=== PATIENT | female | born 1970 | race Caucasian/White ===

== ENCOUNTER 2019-12-10 13:54 | Inpatient (IN) | payer OTHER, SELFPAY ==
[2019-12-10 14:33] LABS: Bacteria/HPF 4+ HPF (None Seen); Bilirubin 1+ (Negative); Blood, Urine Negative (Negative); Calcium Oxalate Crystals 4+ HPF (None Seen); Clarity Turbid (Clear); Glucose, Urine (Dipstick) Normal (Negative); Ketone, Urine Negative (Negative); Leukocyte 25 Leu/uL (Negative); Nitrite Negative (Negative); Protein, Urine (Dipstick) 50 mg/dL (Neg-Trace); RBC/HPF 0-3 HPF (0-3); Specific Gravity, Urine 1.018 (1.002-1.036); Squamous Epithelial 21-50 HPF (0-3); Urobilinogen Normal mg/dL (Less than 2)
[2019-12-10] MEDS ORDERED: Ketorolac Tromethamine 30 MG/ML VIAL ONE (15:11)
[2019-12-10] MEDS ORDERED: Ondansetron PF 4 MG/2 ML Vial ONE ×2 (15:11→20:19)
[2019-12-10 15:32] LABS: #Lymphocytes 1.1 thou/uL (1.20-3.40); #Monocytes 0.4 thou/uL (0.11-0.59); #Neutrophils 6.2 thou/uL (1.40-6.50); %Basophils 0.3 % (0.0-1.0); %Eosinophils 0.3 % (0.0-10.0); %Lymphocytes 13.9 % (21.0-51.0); %Monocytes 5.5 % (0.0-10.0); %Neutrophils 80.1 % (42.0-75.0); Hemoglobin 13.3 g/dL (12.0-16.0); Mean Corpuscular HGB CONC 33.7 g/dL (32.0-36.0); Mean Corpuscular Volume 88.9 fL (78.0-98.0); Mean Platelet Volume 8.2 fL (7.4-10.4); Platelet Count 228 thou/uL (130-400); RBC Distribution Width 11.9 % (11.5-14.5); Red Blood Cell (RBC) Count 4.45 mill/uL (4.20-5.40); White Blood Cell (WBC) Count 7.8 thou/uL (4.8-10.8)
[2019-12-10 15:50] LABS: ALT (SGPT) 451 U/L (8-55); AST (SGOT) 194 U/L (5-34); Albumin 4.2 g/dL (3.5-5.0); Alkaline Phosphatase 222 U/L (40-110); Anion Gap 15 mmol/L (10-20); BUN (Urea Nitrogen) 8 mg/dL (7.0-18.7); Bilirubin, Total 3.7 mg/dL (0.2-1.2); Calc. Creatinine Clearance 0 mL/min (70-130); Calcium 9.9 mg/dL (7.8-10.44); Carbon Dioxide 28 mmol/L (22-29); Chloride 100 mmol/L (98-107); Estimated GFR-MDRD 75; Globulin 3.8 g/dL (2.4-3.5); Glucose 159 mg/dL (70-105); Lipase 37 U/L (8-78); Potassium 3.8 mmol/L (3.5-5.1); Sodium 139 mmol/L (136-145)
--- NOTE | 2019-12-10 15:50 | ULT ---
EXAM: US Gallbladder RUQ CLINICAL HISTORY: Right upper quadrant pain.. COMPARISON: None. FINDINGS: Pancreas: Head and body the pancreas have a normal echotexture. The remainder the pancreas is obscur ed by bowel gas Liver:Increased hepatic parenchymal echotexture may be due to hepatic steatosis or hepatocellular dis ease. Subsequent limited evaluation for hepatic masses and intrahepatic biliary dilatation. Right hepatic lobe: 16.1 cm Gallbladder: Sonographic evidence of cholelithiasis. Gallbladder wall is not thickened. No pericholec ystic fluid. Yao's sign:Negative Portal Vein: Patent. Appropriate directional flow Bile ducts: Common bile duct diameter at the upper limits of normal measuring 0.6 cm Right kidney: No hydronephrosis. Right kidney measures 11.0 x 6.7 x 5.4 cm in length. IMPRESSION: 1. Sonographic evidence of cholelithiasis without evidence of cholecystitis. 2. Common bile duct diameter at the upper limits. 3. Increased echogenicity of the liver which may be due to hepatic steatosis or hepatocellular diseas e. Limited evaluation for hepatic masses and intrahepatic biliary dilatation..
[2019-12-10] MEDS ORDERED: Morphine 4 MG/ML VIAL ONE (16:34)
[2019-12-10] MEDS ORDERED: Piperacillin/Tazobactam 4.5 GM VIAL ONE (17:22)
[2019-12-10] MEDS ORDERED: Ondansetron ODT 4 MG TAB PO PRN (19:27)
[2019-12-10] MEDS ORDERED: Acetaminophen 325 MG TAB PO PRN (19:27)
--- NOTE | 2019-12-10 19:39 | PDOC.FPRHP ---
- History of Present Illness Chief Complaint: Epigastric pain History of Present Illness: Patient is a 49 year old female with a history of hypothyroidism, IBS and mast cell activation syndrome who presents to the ED with complains of epigastric pain for the past 4 days. The patient states the pain has worsened in severity and radiates to her RUQ and back. She describes the pain as similar to reflux burning in nature. She says the pain worsens after eating food and improved with Advil. She rates the pain a currently 7/10, noting it has reached a max 10/ 10 and min 2/10. She reports decreased appetite, lightheadedness, hot/cold flashes, nausea and 2 episodes of vomiting. She denies fever, headache, vision changes, chest pain, SOB, sweating, dysuria, hematuria, and edema. She denies a history of similar symptoms in the past. ED Course: In the ED, the patient received a total of morphine 6mg, zofran 4mg x 2, Piperacillin-tazobactam, NS 1L and ketorolac 30mg. Afebrile. Stable vitals. - Allergies/Adverse Reactions Allergies Allergy/AdvReac Type Severity Reaction Status Date / Time No Known Drug Allergies Allergy Verified 12/10/19 21:45 - Home Medications Medication Instructions Recorded Confirmed Type Cetirizine HCl [Zyrtec] 10 mg PO BID 12/10/19 12/10/19 History Esomeprazole Magnesium 40 mg PO BID 12/10/19 12/10/19 History Ketotifen Fumarate 2 mg OP BID 12/10/19 12/10/19 History Levothyroxine Sodium [Synthroid] 150 mcg PO DAILY 12/10/19 12/10/19 History Omalizumab [Xolair] 150 mg SQ [id number] 12/10/19 12/10/19 History Venlafaxine HCl [Venlafaxine HCl 150 mg PO HS 12/10/19 12/10/19 History ER] hydrOXYzine [Atarax] 10 mg PO QID 12/10/19 12/10/19 History - History PMHx: hypothyroidism, IBS, mast cell activation syndrome, endometrosis PSHx: R elbow surgery, lap for endometriosis FHx: Noncontributory Social: No tobacco use, ETOH use or drug use. - Review of Systems General: reports: weight/appetite/sleep changes. denies: fever/chills, night sweats Eyes: denies: eye pain, vision changes ENT: denies: nasal congestion, rhinorrhea Respiratory: denies: cough, shortness of breath Cardiovascular: denies: chest pain, palpitation, edema Gastrointestinal: reports: nausea, abdominal pain. denies: vomiting, diarrhea, constipation Genitourinary: denies: dysuria, polyuria Skin: denies: rashes, lesions Musculoskeletal: denies: pain, swelling Neurological: denies: syncope, weakness Psychological: denies: anxiety, depression - Vital signs BP: [104/70] HR: [94] RR: [96] Tmax: [97.9] Pox: [96]% on [RA] Wt: [72.575] - Physical Exam Constitutional: NAD, awake, alert and oriented HEENT: normocephalic and atraumatic, no scleral icterus Neck: supple, trachea midline Chest: no-tender to palpation, no lesions Heart: RRR, normal S1/S2 Lungs: CTAB, no respiratory distress Abdomen: soft, non-tender, bowel sounds present, no masses/distention Musculoskeletal: normal structure, ROM grossly normal Neurological: no focal deficit, CN II-XII intact Skin: no rash/lesions, capillary refill <2 seconds, no jaundice Heme/Lymphatic: no unusual bruising or bleeding Psychiatric: normal mood and affect FMR H&P: Results - Labs Result Diagrams: 12/10/19 14:43 12/10/19 14:43 Lab results: WBC 7.8 thou/uL (4.8-10.8) 12/10/19 14:43 Hgb 13.3 g/dL (12.0-16.0) 12/10/19 14:43 Hct 39.5 % (36.0-47.0) 12/10/19 14:43 MCV 88.9 fL (78.0-98.0) 12/10/19 14:43 Plt Count 228 thou/uL (130-400) 12/10/19 14:43 Neutrophils % 80.1 % (42.0-75.0) H 12/10/19 14:43 Sodium 139 mmol/L (136-145) 12/10/19 14:43 Potassium 3.8 mmol/L (3.5-5.1) 12/10/19 14:43 Chloride 100 mmol/L (98-107) 12/10/19 14:43 Carbon Dioxide 28 mmol/L (22-29) 12/10/19 14:43 BUN 8 mg/dL (7.0-18.7) 12/10/19 14:43 Creatinine 0.82 mg/dL (0.6-1.1) 12/10/19 14:43 Glucose 159 mg/dL (70-105) H 12/10/19 14:43 Calcium 9.9 mg/dL (7.8-10.44) 12/10/19 14:43 Total Bilirubin 3.7 mg/dL (0.2-1.2) H 12/10/19 14:43 AST 194 U/L (5-34) H 12/10/19 14:43 ALT 451 U/L (8-55) H 12/10/19 14:43 Alkaline Phosphatase 222 U/L (40-110) H 12/10/19 14:43 Serum Total Protein 8.0 g/dL (6.0-8.3) 12/10/19 14:43 Albumin 4.2 g/dL (3.5-5.0) 12/10/19 14:43 Lipase 37 U/L (8-78) 12/10/19 14:43 Urine Ketones Negative mg/dL (Negative) 12/10/19 14:18 Urine Blood Negative (Negative) 12/10/19 14:18 Urine Nitrite Negative (Negative) 12/10/19 14:18 Ur Leukocyte Esterase 25 Michael/uL (Negative) A 12/10/19 14:18 Urine RBC 0-3 HPF (0-3) 12/10/19 14:18 Urine WBC 11-20 HPF (0-3) A 12/10/19 14:18 Ur Squamous Epith Cells 21-50 HPF (0-3) A 12/10/19 14:18 Urine Bacteria 4+ HPF (None Seen) A 12/10/19 14:18 FMR H&P: A/P - Plan Choledocholithiasis Afebrile. WBC 7.8. AST 194, ALT 451, Alk Phos 222, Bili 3.7. Lipase 37. US showed cholelithiasis with CBD 0.6cm. Dr. Delarosa (GI) consulted in the ED and recommended ERCP in the am. -Admit to surgery inpatient -NPO at midnight for ERCP -Consult Dr. Barnhart (general surgery) for lap brown -LR 110 for maintanence fluids -Zofran PRN for nausea -Morphine PRN for pain -Repeat CBC, CMP in am Asymptomatic bacteruria UA was positive for leuk reji, WBC, and bacteria, however was likely contaminated due to numerous squamous cells. Patient is asymptomatic, therefore no treatment is indicated. -No treatment at this time IBS -Stable on home meds Hypothyrodism -Restart home meds Mast Cell Activation Syndrome -Restart home meds PCP: [facility] Call Code: FULL DVT PPx: SCDs Dispo: admit to surgery inpatient for ERCP and lap brown in the morning, eLOS > 48 hours FMR H&P: Upper Level - Plan Date/Time: 12/10/191938 Evelia Barlow, have evaluated this patient and agree with findings/plan as outlined by summer intern resident. Pertinent changes/additions are listed here. 49 yo F with PMH hypothyroid, IBS, mast cell activation, anxiety presents with nausea, vomiting, and epigastric pain. Symptoms present x4 days. Seen in urgent care, noted to have elevated LFTs and sent to ED for further evaluation. Symptoms have improved since receiving meds in ED. Pain is epigastric, radiating to RUQ and back, intermittently worsens. Any food exacerbates pain. No prior hx gallstones. She is [employer] pay, and cost is important consideration for patient. In ED given zosyn, morphine 4mg, toradol 30, 1L, zofran RUQ US: Cholelithiasis, no cholecystitis. CBD at upper limit of normal, 0.6 cm, increased echogenicity of liver PE Gen: NAD Heart: RRR, no murmur Lungs: CTAB Abd: soft, BS present, NT Ext: no edema 49 yo F with PMH hypothyroidism, IBS, mast cell activation is admitted for likely choledocholithiasis. Suspected Choledocholithiasis - Associated with elevated transaminases, hyperbilirubinemia, AST 194, ALT 451, alk phos 222, bili 3.7. Lipase and WBC wnl. - CBD at upper limits of normal -Dr. Delarosa consulted from ED, plan for ERCP tomorrow. -Gen surg, Dr. Barnhart consulted as well, likely plan for lap brown tomorrow as well - NPO @ midnight, continue maintenance fluids - Zofran, morphine prn - Recheck labs in am Asymptomatic bacteruria - given zosyn in ED, will not continue at htis time, dirty catch Continue home meds. Chronic problems per summer intern note. PCP: none Attending: Rica Ppx: SCDs, plan for surgery Diet: NPO @ MN IVF: LR @ 110 Dispo: admit to surgical floor, expected LOS >48hrs. GI and gen surg consulted with plan for ECRP and possible lab brown tomorrow Addendum - Attending - Attending Attestation Date/Time: 12/10/192043 I personally evaluated the patient and discussed the management with Dr. Rivas. I agree with the History, Examination, Assessment and Plan documented above with any addition or exceptions noted below. The patient has been having epigastric pain radiating to the ruq and to the back. She was seen at [facility] urgent care and noted to have elevated liver enzymes and directed to the [facility] ER. Pt has choledocholithiasis as well as cholelithiasis. GI has been consulted for ERCP and general surgery is also being consulted. Will continue nausea medication and pain control. Trend labs.
[2019-12-10] MEDS ORDERED: Morphine 2 MG/ML SYRINGE ONE (20:18)
--- NOTE | 2019-12-10 21:13 | CON ---
DATE OF CONSULTATION: 12/10/2019 CHIEF COMPLAINT: Abdominal pain. HISTORY OF PRESENT ILLNESS: Ms. Condon is a 49-year-old woman who had onset of epigastric to right upper quadrant aching to sharp abdominal pain 4 days ago. The pain has been continuous since then. She has only eaten one meal since onset of the pain. She has had vomiting and last threw up this morning. No diarrhea or constipation. She was evaluated by Dr. Siegel back in May of this year for chronic diarrhea and a history of mastocytosis and ultimately, she underwent EGD and colonoscopy, which were normal. Biopsies from the stomach and colon and duodenum were normal. She was diagnosed with irritable bowel syndrome and a long way, she was started on venlafaxine and her diarrhea symptoms resolved. The current abdominal pain is unrelated to her prior symptoms, this is all new. She went to an urgent care this morning and she was found to have elevated liver tests and sent on to the emergency room here. While I was down in the ER seeing another patient, the ER doctor asked me to see her. We do not have any labs or imaging back as of yet. PAST MEDICAL HISTORY: Mastocytosis and allergies, irritable bowel syndrome, hypothyroidism, endometriosis, acid reflux, and kidney stones. Her abdominal pain does radiate toward her back. PAST SURGICAL HISTORY: EGD and a colonoscopy in May of this year. FAMILY HISTORY: Negative for GI malignancy or inflammatory bowel disease. SOCIAL HISTORY: No alcohol, tobacco, or drugs. ALLERGIES: NO KNOWN DRUG ALLERGIES. MEDICATIONS: 1. Cetirizine. 2. Ketotifen. 3. Xolair injections monthly. 4. Hydroxyzine. 5. Esomeprazole 40 mg twice daily. REVIEW OF SYSTEMS: Negative x10 systems reviewed except as stated in the history of present illness. PHYSICAL EXAMINATION: GENERAL: She is alert and oriented x3, in no acute distress. HEENT: Her sclerae are icteric. Her oropharynx is clear without lesions. She has no cervical or supraclavicular lymphadenopathy. LUNGS: Clear to auscultation bilaterally. HEART: Regular rate and rhythm without murmur. ABDOMEN: Soft. She is tender in the epigastric regions, the right upper quadrant. Bowel sounds are present. EXTREMITIES: No lower extremity edema. NEUROLOGIC: Her cranial nerves are grossly intact. IMPRESSION: Epigastric to right upper quadrant pain that radiates to the back with scleral icterus. This could be choledocholithiasis or gallstone pancreatitis or cholelithiasis. She could also have an acute hepatitis. We will await blood work and ultrasound to help determine the next step. RECOMMENDATIONS: 1. CMP, CBC, ultrasound of the right upper quadrant, lipase. 2. If she is found to have choledocholithiasis and her liver tests fail to trend down, then the next step will be ERCP. If she has signs of cholangitis with elevated white blood cell count, then we may pursue ERCP first. If her liver tests are dropping, then laparoscopic cholecystectomy with intraoperative cholangiogram could be performed. If it appears that she has more of an acute hepatitis rather than a biliary source and I will send additional labs to work this up further. Job ID: [id number]
[2019-12-10 21:47] VITALS: BMI 30.2
[2019-12-10] MEDS: Morphine 2 MG/ML VIAL SLOW IVP PRN (21:59)
[2019-12-10] MEDS: Lactated Ringer's 1,000 ML IV SCH (22:02)
[2019-12-11] MEDS: Morphine 2 MG/ML VIAL SLOW IVP PRN ×5 (02:00→17:30)
[2019-12-11] MEDS: Lactated Ringer's 1,000 ML IV SCH ×2 (02:03→10:32)
[2019-12-11 05:26] LABS: #Lymphocytes 1.3 thou/uL (1.20-3.40); #Monocytes 0.5 thou/uL (0.11-0.59); #Neutrophils 5.4 thou/uL (1.40-6.50); %Basophils 0.5 % (0.0-1.0); %Eosinophils 0.4 % (0.0-10.0); %Lymphocytes 17.6 % (21.0-51.0); %Monocytes 7.3 % (0.0-10.0); %Neutrophils 74.2 % (42.0-75.0); Mean Corpuscular HGB CONC 33.4 g/dL (32.0-36.0); Mean Corpuscular Hemoglobin 29.9 pg (27.0-31.0); Mean Corpuscular Volume 89.7 fL (78.0-98.0); Mean Platelet Volume 7.5 fL (7.4-10.4); Platelet Count 207 thou/uL (130-400); RBC Distribution Width 11.9 % (11.5-14.5); Red Blood Cell (RBC) Count 3.99 mill/uL (4.20-5.40); White Blood Cell (WBC) Count 7.3 thou/uL (4.8-10.8)
[2019-12-11 05:38] LABS: ALT (SGPT) 361 U/L (8-55); AST (SGOT) 168 U/L (5-34); Albumin 3.6 g/dL (3.5-5.0); Alkaline Phosphatase 214 U/L (40-110); Anion Gap 13 mmol/L (10-20); BUN (Urea Nitrogen) 7 mg/dL (7.0-18.7); Bilirubin, Total 3.2 mg/dL (0.2-1.2); Calc. Creatinine Clearance 97 mL/min (70-130); Calcium 8.6 mg/dL (7.8-10.44); Carbon Dioxide 24 mmol/L (22-29); Chloride 104 mmol/L (98-107); Estimated GFR-MDRD 75; Globulin 3.1 g/dL (2.4-3.5); Glucose 179 mg/dL (70-105); Potassium 3.8 mmol/L (3.5-5.1); Protein, Total 6.7 g/dL (6.0-8.3); Sodium 137 mmol/L (136-145)
[2019-12-11] MEDS ORDERED: Levothyroxine 150 MCG TAB PO SCH (06:00)
--- NOTE | 2019-12-11 06:15 | PDOC.FM ---
- Subjective Subjective: Ms. Condon has a severe frontal headache this morning, requiring an ice pack for relief. Light, sounds, and talking make the headache worse. Her abdominal pain is slightly improved but still present. - Objective Vital Signs & Weight: Vital Signs (12 hours) Temp Pulse Resp BP Pulse Ox 12/11/19 03:52 98.9 F 88 18 130/70 98 12/11/19 00:00 98.2 F 82 16 121/69 96 12/10/19 22:31 97 12/10/19 20:10 98.0 F 88 18 129/66 97 Weight Weight 72.575 kg I&O: 12/09/19 12/10/19 12/11/19 06:59 06:59 06:59 Intake Total 1610 Balance 1610 Result Diagrams: 12/11/19 05:08 12/11/19 05:08 Phys Exam - Physical Examination lying in bed uncomfortable with ice pack on forehead HEENT: moist MMs Neck: no JVD, full ROM Respiratory: no wheezing, clear to auscultation bilateral Cardiovascular: RRR, no significant murmur Gastrointestinal: soft, positive bowel sounds tenderness in RUQ Musculoskeletal: no edema, pulses present Neurological: moves all 4 limbs Psychiatric: normal affect, A&O x 3 Dx/Plan - Plan Plan: Choledocholithiasis -Afebrile -AST 194>168, ALT 451>361, Alk Phos 222>214 -Shante to perform ERCP and lap brown simultaneously unless a reason is discovered to do otherwise -LR 110 for maintanence fluids -Zofran PRN for nausea -Morphine PRN for pain -Will check on patient after surgery Headache -History of migraines in young adulthood -Told patient she was okay to take a tylenol Asymptomatic bacteruria UA was positive for leuk reji, WBC, and bacteria, however was likely contaminated due to numerous squamous cells. Patient is asymptomatic, therefore no treatment is indicated. -No treatment at this time IBS -Stable on home meds Hypothyrodism -Restart home meds Mast Cell Activation Syndrome -Restart home meds PCP: [facility] Call Code: FULL DVT PPx: SCDs Dispo: admit to surgery inpatient for ERCP and lap brown in the morning, eLOS > 48 hours Addendum - Attending - Attending Attestation Date/Time: 12/11/19 1317 I personally evaluated the patient and discussed the management with Dr. Quispe. I agree with the History, Examination, Assessment and Plan documented above with any addition or exceptions noted below. Patient is having a severe headache this morning. Will give a dose of tylenol. She does note pain meds have helped her abdominal pain. Plan for ERCP and likely a lap brown today. Liver enzymes down-trended slightly.
[2019-12-11] MEDS: Ondansetron PF 4 MG/2 ML Vial IVP PRN ×2 (06:16→17:09)
[2019-12-11] MEDS ORDERED: Ketotifen Fumarate 0.025% Ophth Soln 5 ml Bottle EA EYE SCH (09:00)
[2019-12-11] MEDS ORDERED: Loratadine 10 MG TAB PO SCH (09:00)
[2019-12-11] MEDS: hydrOXYzine 10 MG TAB PO SCH ×4 (09:46→23:31)
[2019-12-11] MEDS: Piperacillin/Tazobactam 3.375 GM in Sodium Chloride 0.9% 100 ML IVPB SCH ×3 (10:31→23:29)
[2019-12-11] MEDS ORDERED: Iothalamate Meglumine 60% 50 ML VIAL FS ONE (12:02)
[2019-12-11] MEDS ORDERED: Indomethacin 50 MG SUPP ONE (12:02)
[2019-12-11] MEDS ORDERED: Fentanyl 100 MCG/2 ML VIAL ONE ×4 (12:25→15:59)
[2019-12-11] MEDS ORDERED: Lidocaine 1% w/Epinephrine 1:100K 20 ML VIAL ONE (12:31)
[2019-12-11] MEDS ORDERED: Bupivacaine 0.25% HCL 30 ML VIAL ONE (12:31)
[2019-12-11] MEDS ORDERED: Midazolam HCl 2 mg/2 ml Vial ONE (12:49)
[2019-12-11] MEDS ORDERED: EPHEDRINE 25 MG/5 ML SYRINGE ONE (13:15)
[2019-12-11] MEDS ORDERED: Lidocaine 1% PF 5 ML VIAL ONE (13:15)
[2019-12-11] MEDS ORDERED: Rocuronium Bromide 10 MG/ML (10ML VIAL) ONE (13:15)
[2019-12-11] MEDS ORDERED: Ketorolac Tromethamine 30 MG/ML VIAL ONE (13:15)
[2019-12-11] MEDS ORDERED: Dexamethasone 20 MG/5 ML VIAL ONE (13:15)
[2019-12-11] MEDS ORDERED: Ondansetron PF 4 MG/2 ML Vial ONE (13:15)
[2019-12-11] MEDS ORDERED: PROPOFOL 200 MG/20 ML VIAL ONE (13:15)
[2019-12-11] MEDS ORDERED: Glycopyrrolate 0.2 MG/ML 5 ML SYRINGE ONE (13:15)
[2019-12-11 13:44] LABS: SARS-CoV-2 MS2 Positive; SARS-CoV-2 N Gene Negative; SARS-CoV-2 S Gene Negative; SARS-CoV-2 by NAA Not Detected (NotDetected); SARS-CoV-2 orf1ab Negative
--- NOTE | 2019-12-11 14:30 | RAD ---
EXAM: INTRAPROCEDURE FLUOROSCOPY FOR ERCP: HISTORY: Evaluate for choledocholithiasis. Upper normal common bile duct FINDINGS: 11 intraprocedure fluoroscopic images are submitted for interpretation. Retrograde opacification of t he common bile duct and central intrahepatic biliary system. No evidence of dilatation. No definite filling defects to suggest choledocholithiasis. IMPRESSION: No evidence of choledocholithiasis on the static images provided. Refer to separate ERCP report. Transcribed Date/Time: 12/11/2019 2:41 PM
[2019-12-11] MEDS ORDERED: Promethazine HCl 25 MG/ML VIAL SLOW IVP PRN ×2 (15:26→19:12)
[2019-12-11] MEDS ORDERED: Ondansetron HCl/PF 4 MG/2 ML Vial IVP PRN (15:26)
[2019-12-11] MEDS ORDERED: Promethazine HCl 25 MG/ML VIAL IM PRN (15:26)
--- NOTE | 2019-12-11 18:42 | PDOC.OP ---
Operative Note - Operative Note Operative Note: DATE OF PROCEDURE: 12/11/2019 PROCEDURES: Laparoscopic cholecystectomy. SURGEON: Aby Barnhart M.D. PREOPERATIVE DIAGNOSIS: Cholelithiasis POSTOPERATIVE DIAGNOSIS: Cholelithiasis and cholecystitis FINDINGS: Distended chronically thickened gallbladder with wide cystic duct containing multiple stones. HISTORY: Patient with choledocholithiasis status post ERCP and removal of multiple small stones from the common bile duct.. Laparoscopic cholecystectomy was recommended for prevention of future episodes PROCEDURE: After informed consent was obtained and appropriate preoperative antibiotics were administered, the patient was taken to the operating room and placed in the supine position and general endotracheal anesthesia was administered. The stomach was decompressed with an OG tube and the abdomen was prepped and draped in standard sterile fashion. Local anesthesia was infused to the skin and subcutaneous tissues at the umbilical level. A transverse skin incision was made. Dissection was carried down to a small umbilical hernia containing preperitoneal fat only. Preperitoneal fat was excised and the fascial edges exposed and stay sutures placed. The fascia was elevated and a Veress needle was placed into the abdominal cavity through the fascial defect without difficulty. Opening pressure was less than 5 and carbon dioxide gas easily insufflated to an intra-abdominal pressure of 15, which the patient tolerated well. The Veress needle was withdrawn and a [place] port advanced under direct vision. The abdominal cavity was carefully examined. There was no evidence of Veress needle or of trocar injury. Local anesthesia was infused to the skin and subcutaneous tissues at the epigastric, right upper quadrant, and right lateral abdominal sites and trocars were placed under direct vision of the laparoscope. The gallbladder was noted to be very distended and white walled but was able to be grasped. The fundus of the gallbladder was grasped and retracted superiorly. The infundibulum was grasped and retracted laterally. The serosa was stripped inferiorly at the level of the neck of the gallbladder exposing the cystic duct and artery which were traced clearly to their insertion in the gallbladder. Critical view of safety was obtained and the cystic duct and artery were clipped. As the cystic duct was incised between the clips some small gallstones were seen so the cystic duct was not completely divided. The inferior clips were taken off and the cystic duct milked superiorly. Multiple small stones were milked out of the cystic duct following which there was flow of some sludge and then clear bile. Once the cystic duct was completely cleared of sludge and stones 2 clips were placed inferior to the incision and the cystic duct and the cystic duct was divided. The cystic artery was then divided between the previously placed clips and the gallbladder was then dissected free of the gallbladder bed using hook electrocautery. This was done with moderate difficulty due to the gallbladder wall being thickened and edematous consistent with cholecystitis. Prior to complete removal of the gallbladder from the gallbladder bed, the area of the cystic duct and artery stumps were examined. The clips were in good position completely across these structures and there was no bleeding and no leakage of bile. The gallbladder was then placed into an EndoCatch bag and drawn out through the epigastric incision after removal of innumerable stones from within the gallbladder. The epigastric trocar was replaced and the operative site easily irrigated to clear. There was no significant bleeding or spillage of bile. The epigastric trocar was removed and the fascia closed under direct laparoscopic vision with a 0 Vicryl suture on a GraNee needle in a figure-of- eight manner with excellent technical result. The right upper quadrant and right lateral abdominal trocars were removed and hemostasis verified. Carbon dioxide gas was allowed to desufflate through the umbilical trocar which was then removed. The fascia at the umbilicus was closed using the previously placed stay sutures with excellent technical result. Additional local anesthesia was infused for postoperative pain control. The skin incisions were closed with 4-0 subcuticular Monocryl sutures and Dermabond dressings were placed. The patient was extubated and taken to the recovery room in good condition. There were no complications. ESTIMATED BLOOD LOSS: Minimal. SPECIMEN : Gallbladder and contents.
[2019-12-11] MEDS ORDERED: HYDROcodone/Acetaminophen 7.5/325 mg Tablet PO PRN (19:06)
[2019-12-11] MEDS ORDERED: traMADol HCl 50 MG TAB PO PRN (19:08)
[2019-12-11] MEDS ORDERED: Morphine 2 MG/ML VIAL SLOW IVP PRN (19:09)
[2019-12-11] MEDS ORDERED: Morphine 4 MG/ML VIAL SLOW IVP PRN (19:10)
[2019-12-11] MEDS ORDERED: Fentanyl 100 MCG/2 ML VIAL SLOW IVP PRN (19:11)
[2019-12-11] MEDS ORDERED: Promethazine HCl 25 MG in Sodium Chloride 0.9% 50 ML IVPB PRN (19:13)
[2019-12-11] MEDS: HYDROcodone/Acetaminophen 7.5/325 mg Tablet PO PRN ×2 (19:36→23:30)
[2019-12-11] MEDS: Fentanyl 100 MCG/2 ML VIAL SLOW IVP PRN ×3 (19:36→23:29)
[2019-12-11] MEDS: ESOMEPRAZOLE 40 MG PO SCH (20:42)
[2019-12-11] MEDS: KETOTIFEN PO SCH (20:43)
[2019-12-11] MEDS: VENLAFAXINE 75 MG PO SCH (20:44)
[2019-12-11] MEDS: HYDROXYZINE 10 MG PO SCH (20:45)
--- NOTE | 2019-12-11 20:53 | OP ---
DATE OF PROCEDURE: 12/11/2019 PROCEDURE: Endoscopic retrograde cholangiopancreatography with sphincterotomy and balloon stone extraction. PREOPERATIVE DIAGNOSIS: Choledocholithiasis. DESCRIPTION OF PROCEDURE: Informed consent was obtained from the patient. She was sedated with general anesthesia. The duodenal scope was advanced easily to the second portion of the duodenum and retroflexion was performed in the stomach. The ampulla was identified and had a small periampullary diverticulum proximal to the ampulla. The ampulla itself appeared unremarkable, but no bile flow was present. The ampulla was cannulated with a sphincterotome and guidewire. The guidewire initially passed into the pancreatic duct. The sphincterotome was repositioned, and the common bile duct was selectively cannulated and the guidewire was advanced into the bile duct. The cholangiogram was performed, which revealed filling defects in the distal common bile duct. A complete sphincterotomy was performed. Balloon sweep was performed with a 9-mm and then 12-mm balloon. The 12-mm balloon passed through the sphincterotomy without resistance. I removed numerous small brown stones measuring 3 to 5 mm. After few balloon sweeps of the duct, the occlusion cholangiogram confirmed the duct to be clear. IMPRESSION: 1. Small periampullary diverticulum. 2. Complete sphincterotomy. 3. Cholangiogram showing multiple filling defects. 4. Choledocholithiasis status post balloon extraction of numerous small stones measuring 3 to 5 mm, which were brown stones. 5. Occlusion cholangiogram confirmed the duct to be clear. RECOMMENDATIONS: She will proceed to laparoscopic cholecystectomy with Dr. Barnhart under the same sedation. Job ID: [id number]
[2019-12-11] MEDS ORDERED: Venlafaxine HCl XR 150 MG CAP PO SCH (21:00)
[2019-12-12] MEDS: Lactated Ringer's 1,000 ML IV SCH ×2 (02:17→17:18)
[2019-12-12] MEDS: HYDROcodone/Acetaminophen 7.5/325 mg Tablet PO PRN ×5 (03:27→21:40)
[2019-12-12] MEDS: [UNRECOGNIZED DRUG - OTHER] PO SCH (05:45)
[2019-12-12] MEDS: LEVOTHYROXINE PO SCH (05:45)
[2019-12-12] MEDS: Piperacillin/Tazobactam 3.375 GM in Sodium Chloride 0.9% 100 ML IVPB SCH ×3 (05:52→18:03)
[2019-12-12 05:57] LABS: #Lymphocytes 1.6 thou/uL (1.20-3.40); #Monocytes 0.6 thou/uL (0.11-0.59); #Neutrophils 7.4 thou/uL (1.40-6.50); %Basophils 0.1 % (0.0-1.0); %Eosinophils 0.2 % (0.0-10.0); %Lymphocytes 16.2 % (21.0-51.0); %Monocytes 6.5 % (0.0-10.0); Hemoglobin 11.2 g/dL (12.0-16.0); Mean Corpuscular HGB CONC 33.1 g/dL (32.0-36.0); Mean Corpuscular Hemoglobin 29.5 pg (27.0-31.0); Mean Corpuscular Volume 89.2 fL (78.0-98.0); Mean Platelet Volume 7.6 fL (7.4-10.4); Platelet Count 224 thou/uL (130-400); RBC Distribution Width 12.1 % (11.5-14.5); White Blood Cell (WBC) Count 9.6 thou/uL (4.8-10.8)
[2019-12-12] MEDS ORDERED: Levothyroxine 150 MCG TAB PO SCH (06:00)
--- NOTE | 2019-12-12 06:20 | PDOC.FM ---
- Subjective Subjective: Patient reports 7.5/10 pain mainly around the incision sites. Reports ambulation , urination, no BM. - Objective Vital Signs & Weight: Vital Signs (12 hours) Temp Pulse Resp BP Pulse Ox 12/12/19 03:32 98.4 F 87 16 103/68 92 L 12/11/19 23:19 98.3 F 86 18 115/72 95 12/11/19 22:00 91 118/76 12/11/19 21:00 83 119/66 12/11/19 20:00 89 145/90 H 98 12/11/19 19:00 98.1 F 85 16 125/84 98 Weight Weight 72.575 kg I&O: 12/10/19 12/11/19 12/12/19 06:59 06:59 06:59 Intake Total 1610 3400 Balance 1610 3400 Result Diagrams: 12/12/19 05:23 12/12/19 05:23 Dx/Plan - Plan Plan: Choledocholithiasis -Afebrile -AST 194>168, ALT 451>361, Alk Phos 222>214 -S/p ERCP and lap brown simultaneously -Zofran PRN for nausea -Try to switch to PO pain meds - Abx will be done today Transaminitis -likely related to choledocholithiasis - Trend PRN Headache -History of migraines in young adulthood -Tylenol PRN Asymptomatic bacteruria UA was positive for leuk reji, WBC, and bacteria, however was likely contaminated due to numerous squamous cells. Patient is asymptomatic, therefore no treatment is indicated. -No treatment at this time IBS -Stable on home meds Hypothyrodism - home meds Mast Cell Activation Syndrome home meds PCP: [facility] Call Code: FULL DVT PPx: SCDs Dispo: eLOS < 48 hours Addendum - Attending - Attending Attestation Date/Time: 12/12/19 7277 I personally evaluated the patient and discussed the management with Dr. Real. I agree with the History, Examination, Assessment and Plan documented above with any addition or exceptions noted below. Continue post op care for her s/p cholecystecomy. LFTs continue to be elevated, suspect we will need to continue to trend those. Monitor diet toleration. Awaiting further recs from surgery team and GI.
[2019-12-12 06:21] LABS: ALT (SGPT) 379 U/L (8-55); AST (SGOT) 208 U/L (5-34); Albumin 3.5 g/dL (3.5-5.0); Alkaline Phosphatase 227 U/L (40-110); Anion Gap 12 mmol/L (10-20); BUN (Urea Nitrogen) 6 mg/dL (7.0-18.7); Bilirubin, Total 2.6 mg/dL (0.2-1.2); Calc. Creatinine Clearance 102 mL/min (70-130); Calcium 8.8 mg/dL (7.8-10.44); Carbon Dioxide 26 mmol/L (22-29); Chloride 103 mmol/L (98-107); Estimated GFR-MDRD 79; Globulin 3.3 g/dL (2.4-3.5); Glucose 174 mg/dL (70-105); Lipase 64 U/L (8-78); Protein, Total 6.8 g/dL (6.0-8.3); Sodium 137 mmol/L (136-145)
--- NOTE | 2019-12-12 07:02 | CON ---
DATE OF CONSULTATION: REASON FOR CONSULT: Cholelithiasis. HISTORY OF PRESENT ILLNESS: Ms. Condon is a 49-year-old woman with a 4-day history of abdominal pain and nausea. She states that on Thursday night, she got a little nauseated. On she started having upper abdominal pain and severe nausea and vomiting and just feeling bad. She thought that she had a stomach flu and tried to wait it out at home, but her symptoms were getting worse, so her family brought her to the emergency room. She has had chills, but no fevers and denies blood or coffee-ground emesis when she vomits. The pain was exacerbated by eating. Advil helped a little bit, but it never went completely away. ALLERGIES: SHE HAS NO KNOWN DRUG ALLERGIES. HOME MEDICATIONS: Include: 1. Zyrtec. 2. Esomeprazole. 3. Ketotifen fumarate. 4. Synthroid. 5. Xolair. 6. Venlafaxine. 7. Atarax. PAST MEDICAL HISTORY: Hypothyroidism, irritable bowel disease, mast cell activation syndrome, and endometriosis. PAST SURGICAL HISTORY: Right elbow surgery, ligament repair, and laparoscopic surgery for endometriosis in her 20s. FAMILY HISTORY: Noncontributory. Her father has hypertension and multiple medical issues related to surgery for gastric ulcers. SOCIAL HISTORY: She does not smoke, drink, or use illicit drugs. 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 REVIEW OF SYSTEMS: Ten system review of systems is negative except per HPI. PHYSICAL EXAMINATION: VITAL SIGNS: The patient has been afebrile since admission. Heart rate 82, respirations 16, 96% saturated on room air, blood pressure 113/77. GENERAL: Reveals a healthy-appearing woman, in no acute distress. She is not flushed or toxic in appearance. She is not jaundiced or icteric. She is not diaphoretic. HEENT: Unremarkable. Pupils are equal. Extraocular movements are intact and facial movements are symmetric. NECK: Supple without lymphadenopathy or thyroid nodules. HEART: Regular rate and rhythm without murmurs, rubs, or gallops. LUNGS: Clear to auscultation bilaterally. She does have pain with deep inspiration. ABDOMEN: Soft and nondistended. She has a reducible, but tender umbilical hernia. She is very tender to palpation in the right upper quadrant greater than the epigastrium. She does not exhibit rigidity, rebound, or guarding. EXTREMITIES: Warm, well perfused without edema. NEUROLOGIC: No focal deficits. PSYCHIATRIC: Alert, oriented, and appropriate with normal affect. LABORATORY DATA: White count is normal at 7.3. She does have a high normal neutrophil count and had a slight left shift yesterday. Electrolytes are unremarkable, but her LFTs are diffusely abnormal. Her bilirubin was 3.7 and 3.2 this morning. AST and ALT are 168 and 361 this morning, and alkaline phosphatase is 214. These are all down just marginally from her admission. IMAGING DATA: She had a gallbladder ultrasound performed in the emergency department. I have reviewed these images and agree with the written report. She has stones in her gallbladder. Her common bile duct is at the upper limits of normal. She has increased echogenicity of the liver consistent with hepatic steatosis. ASSESSMENT: Cholelithiasis and likely choledocholithiasis. She is on the schedule for endoscopic retrograde cholangiopancreatography later today. If she does not require prolonged insufflation leading to abdominal distention, we will plan to proceed immediately after the endoscopic retrograde cholangiopancreatography with laparoscopic cholecystectomy. Inherent risks of laparoscopic cholecystectomy were discussed with the patient. These risks include, but are not limited to, bleeding, infection, risks of anesthesia, damage to nearby structures including bowel, liver, and bile duct, need for other procedures, and need for open surgery. She understands, accepts these risks, and wished to proceed. She understands that the main reason for undergoing laparoscopic cholecystectomy is prevention of future episodes of choledocholithiasis or complicated gallstone disease. She received Zosyn in the emergency room and will receive antibiotics perioperatively. Job ID: [id number]
[2019-12-12] MEDS: ESOMEPRAZOLE 40 MG PO SCH ×2 (08:15→21:14)
[2019-12-12] MEDS: CETIRIZINE 10 MG PO SCH (08:17)
[2019-12-12] MEDS: KETOTIFEN PO SCH ×2 (08:18→21:16)
[2019-12-12] MEDS ORDERED: Loratadine 10 MG TAB PO SCH (09:30)
[2019-12-12] MEDS: Fentanyl 100 MCG/2 ML VIAL SLOW IVP PRN ×2 (10:48→15:33)
[2019-12-12] MEDS: hydrOXYzine 10 MG TAB PO SCH (10:53)
[2019-12-12] MEDS: Ketotifen Fumarate 0.025% Ophth Soln 5 ml Bottle EA EYE SCH ×2 (10:54→22:15)
[2019-12-12] MEDS ORDERED: fentaNYL 75 mcg/hour Patch TD SCH (11:00)
--- NOTE | 2019-12-12 11:50 | PRG ---
DATE OF SERVICE: 12/12/2019 SUBJECTIVE: Ms. Condon has pain in her right upper quadrant. She has been up ambulating in the halls a couple of times today. OBJECTIVE: VITAL SIGNS: Temperature 98.5, pulse 84, blood pressure 123/72. GENERAL: She is in no acute distress. Alert and oriented x3. LUNGS: Clear to auscultation bilaterally. HEART: Regular rate and rhythm without murmur. ABDOMEN: Soft, nontender in the left and lower abdomen, but tender in the right upper quadrant. Bowel sounds are present. EXTREMITIES: No lower extremity edema. LABORATORY DATA: Bilirubin 2.6, AST 206, ALT 379, alkaline phosphatase 227. IMPRESSION: Choledocholithiasis, status post ERCP and balloon stone extraction and cholecystectomy yesterday. Her bilirubin is trending down today. She is still having some postoperative pain, but her abdomen is soft and there are no peritoneal signs. Her lipase is normal. RECOMMENDATIONS: She can follow up in GI clinic in 2 to 4 weeks to recheck the trend of her liver tests. She might end up needing to stay another night for pain control. Decision will be deferred to Surgery and Primary Service. I will sign off for now. Please call if GI can be of assistance. Job ID: [id number]
--- NOTE | 2019-12-12 12:13 | PDOC.GSPN ---
Surgery Progress Note: Subj - Subjective Narrative: Patient has had a lot of postoperative pain. Fentanyl helps a little but it wears off quickly. Morphine gave her severe headache. Oral medications help a little bit but she is still requiring IV for breakthrough. Pain is in the right upper quadrant and feels deep. She is eating and ambulating and passing gas. Afebrile with normal vital signs. No tachycardia. White count is normal. LFTs are trending down. Incisions look good. She is a little distended and quite tender to palpation in the right upper quadrant. Bowel sounds are quiet. Assessment/plan: Still with significant postoperative pain status post ERCP and laparoscopic cholecystectomy. I think this is just postoperative in nature but she is not well enough controlled to discharge home. I added a fentanyl patch to try to give her some more steady pain control. We will need to watch her carefully for any signs of complication of her procedures, but given normal vitals and labs I doubt that she has a duodenal injury or bile leak or other serious problem. If her pain does not improve by tomorrow I will order some imaging. Surgery Progress Note: Obj - Vital signs Vital signs: Vital Signs - Most Recent Temp Pulse Resp BP Pulse Ox 98.3 F 104 H 20 149/72 H 96 12/12/19 10:42 12/12/19 10:42 12/12/19 10:42 12/12/19 10:42 12/12/19 10:42 Surgery Progress Note: Results - Labs Result Diagrams: 12/12/19 05:23 12/12/19 05:23 Lab results: Laboratory Results - last 24 hr 12/12/19 12/12/19 05:23 05:23 WBC 9.6 RBC 3.80 L Hgb 11.2 L Hct 33.9 L MCV 89.2 MCH 29.5 MCHC 33.1 RDW 12.1 Plt Count 224 MPV 7.6 Neutrophils % 77.0 H Lymphocytes % 16.2 L Monocytes % 6.5 Eosinophils % 0.2 Basophils % 0.1 Neutrophils # 7.4 H Lymphocytes # 1.6 Monocytes # 0.6 H Eosinophils # 0.0 Basophils # 0.0 Sodium 137 Potassium 4.0 Chloride 103 Carbon Dioxide 26 Anion Gap 12 BUN 6 L Creatinine 0.78 Estimated GFR (MDRD) 79 Glucose 174 H Calcium 8.8 Total Bilirubin 2.6 H AST 208 H ALT 379 H Alkaline Phosphatase 227 H Serum Total Protein 6.8 Albumin 3.5 Globulin 3.3 Albumin/Globulin Ratio 1.1 L Lipase 64
[2019-12-12] MEDS: HYDROXYZINE 10 MG PO SCH (21:14)
[2019-12-12] MEDS: VENLAFAXINE 75 MG PO SCH (21:15)
[2019-12-13] MEDS: Piperacillin/Tazobactam 3.375 GM in Sodium Chloride 0.9% 100 ML IVPB SCH ×5 (00:44→23:55)
[2019-12-13] MEDS: HYDROcodone/Acetaminophen 7.5/325 mg Tablet PO PRN ×6 (01:41→23:54)
[2019-12-13 05:12] LABS: #Lymphocytes 1.9 thou/uL (1.20-3.40); #Monocytes 0.6 thou/uL (0.11-0.59); #Neutrophils 4.9 thou/uL (1.40-6.50); %Basophils 0.6 % (0.0-1.0); %Eosinophils 0.6 % (0.0-10.0); %Lymphocytes 25.7 % (21.0-51.0); %Monocytes 7.9 % (0.0-10.0); %Neutrophils 65.2 % (42.0-75.0); Hemoglobin 11.2 g/dL (12.0-16.0); Mean Corpuscular HGB CONC 32.5 g/dL (32.0-36.0); Mean Corpuscular Hemoglobin 29.5 pg (27.0-31.0); Mean Corpuscular Volume 90.7 fL (78.0-98.0); Mean Platelet Volume 7.5 fL (7.4-10.4); Platelet Count 211 thou/uL (130-400); RBC Distribution Width 12.2 % (11.5-14.5); Red Blood Cell (RBC) Count 3.79 mill/uL (4.20-5.40); White Blood Cell (WBC) Count 7.5 thou/uL (4.8-10.8)
[2019-12-13] MEDS: LEVOTHYROXINE PO SCH (05:23)
[2019-12-13] MEDS: [UNRECOGNIZED DRUG - OTHER] PO SCH (05:23)
[2019-12-13 05:40] LABS: Anion Gap 17 mmol/L (10-20); BUN (Urea Nitrogen) 4 mg/dL (7.0-18.7); Calc. Creatinine Clearance 95 mL/min (70-130); Carbon Dioxide 24 mmol/L (22-29); Chloride 102 mmol/L (98-107); Estimated GFR-MDRD 73; Potassium 4.7 mmol/L (3.5-5.1); Sodium 138 mmol/L (136-145)
[2019-12-13 05:41] LABS: ALT (SGPT) 307 U/L (8-55); AST (SGOT) 133 U/L (5-34); Albumin 3.4 g/dL (3.5-5.0); Alkaline Phosphatase 243 U/L (40-110); Bilirubin, Total 2.1 mg/dL (0.2-1.2); Calcium 8.6 mg/dL (7.8-10.44); Globulin 3.3 g/dL (2.4-3.5); Glucose 120 mg/dL (70-105); Lipase 111 U/L (8-78); Protein, Total 6.7 g/dL (6.0-8.3)
--- NOTE | 2019-12-13 06:25 | PDOC.FM ---
- Subjective Subjective: Patient has better pain control but still has upper abdominal pain near/under the incision sites. Otherwise no acute concerns. Endorses tolerating CLD with no N/V, voiding, passing flatus. - Objective MAR Reviewed: Yes Vital Signs & Weight: Vital Signs (12 hours) Temp Pulse Resp BP Pulse Ox 12/13/19 04:01 98.6 F 91 16 113/77 94 L 12/13/19 00:30 98.4 F 73 16 107/71 94 L Weight Admit Weight 72.575 kg Weight 72.575 kg I&O: 12/11/19 12/12/19 12/13/19 06:59 06:59 06:59 Intake Total 1610 3400 Balance 1610 3400 Result Diagrams: 12/13/19 04:41 12/13/19 04:41 Phys Exam - Physical Examination Constitutional: NAD HEENT: moist MMs, sclera anicteric Neck: supple, full ROM Respiratory: no wheezing, no rales, no rhonchi, clear to auscultation bilateral Cardiovascular: RRR, no significant murmur, no rub Gastrointestinal: soft, no distention, positive bowel sounds Tender diffusely, more significant over incision sites Musculoskeletal: no edema, pulses present Dx/Plan - Plan Plan: Choledocholithiasis -Afebrile -S/p ERCP and lap brown simultaneously -Zofran PRN for nausea -Try to switch to PO pain meds - Abx likely done today - surgery recs Transaminitis -likely related to choledocholithiasis - Trend PRN Headache -History of migraines in young adulthood -Tylenol PRN Asymptomatic bacteruria UA was positive for leuk reji, WBC, and bacteria, however was likely contaminated due to numerous squamous cells. Patient is asymptomatic, therefore no treatment is indicated. -No treatment at this time IBS -Stable on home meds Hypothyrodism - home meds Mast Cell Activation Syndrome home meds PCP: [facility] Call Code: FULL DVT PPx: SCDs Dispo: eLOS < 48 hours Addendum - Attending - Attending Attestation Date/Time: 12/13/19 1117 I personally evaluated the patient and discussed the management with Dr. Real. I agree with the History, Examination, Assessment and Plan documented above with any addition or exceptions noted below. Patient with continued post op pain refractory to opioids. Nehemias is managing her post-op course and pain control. Suspect we will re-image her abdomen today. Her LFTs are stable but have not downtrended as I would anticipate.
[2019-12-13] MEDS: KETOTIFEN PO SCH ×2 (08:51→21:26)
[2019-12-13] MEDS: ESOMEPRAZOLE 40 MG PO SCH ×2 (08:52→21:25)
[2019-12-13] MEDS: Ketotifen Fumarate 0.025% Ophth Soln 5 ml Bottle EA EYE SCH ×2 (08:53→21:33)
[2019-12-13] MEDS: CETIRIZINE 10 MG PO SCH (08:53)
[2019-12-13] MEDS ORDERED: OMALIZUMAB 150 MG SC SCH (09:00)
[2019-12-13] MEDS ORDERED: Venlafaxine HCl XR 150 MG CAP PO SCH (09:00)
[2019-12-13] MEDS ORDERED: Fluconazole 100 MG TAB PO SCH (12:30)
[2019-12-13] MEDS: traMADol HCl 50 MG TAB PO PRN ×2 (16:52→21:31)
--- NOTE | 2019-12-13 18:03 | PDOC.GSPN ---
Surgery Progress Note: Subj - Subjective Narrative: Patient feels better today. She is tolerating her diet and passing flatus. Not very hungry but taking plenty of fluids. Pain is controlled on fentanyl patch and oral medications. She is complaining of a yeast infection due to antibiotics. Abdomen is soft slightly distended and has appropriate post operative tenderness. Vital signs look good. White count is normal. LFTs are slowly declining. Lipase was very minimally elevated today. Assessment/plan: Doing better. She may have had some very mild pancreatitis which contributed to her postoperative pain. She is currently controlled on fentanyl patch and oral medications alone and can be discharged home from a surgical standpoint. I would recommend that she stay on a low-fat diet to avoid aggravating her pancreas, but I do not think that her pancreatitis is clinically significant. She can follow-up with me in 2 weeks time. I also prescribed some Diflucan for her vaginal candidiasis and discontinued her antibiotics. Surgery Progress Note: Obj - Vital signs Vital signs: Vital Signs - Most Recent Temp Pulse Resp BP Pulse Ox 97.5 F L 89 18 115/79 97 12/13/19 15:51 12/13/19 15:51 12/13/19 15:51 12/13/19 15:51 12/13/19 15:51 Surgery Progress Note: Results - Labs Result Diagrams: 12/13/19 04:41 12/13/19 04:41
[2019-12-13] MEDS: HYDROXYZINE 10 MG PO SCH (21:25)
[2019-12-13] MEDS: VENLAFAXINE 75 MG PO SCH (21:26)
[2019-12-13] MEDS: Docusate 100 MG CAP PO SCH (21:30)
[2019-12-14] MEDS: Piperacillin/Tazobactam 3.375 GM in Sodium Chloride 0.9% 100 ML IVPB SCH ×2 (05:35→12:02)
[2019-12-14] MEDS: traMADol HCl 50 MG TAB PO PRN (05:36)
[2019-12-14] MEDS: [UNRECOGNIZED DRUG - OTHER] PO SCH (05:36)
[2019-12-14] MEDS: LEVOTHYROXINE PO SCH (05:36)
[2019-12-14 05:49] LABS: #Basophils 0.1 thou/uL (0.0-0.2); #Eosinphils 0.1 thou/uL (0.0-0.7); #Lymphocytes 2.4 thou/uL (1.20-3.40); #Monocytes 0.6 thou/uL (0.11-0.59); #Neutrophils 5.9 thou/uL (1.40-6.50); %Basophils 0.6 % (0.0-1.0); %Eosinophils 0.8 % (0.0-10.0); %Lymphocytes 26.3 % (21.0-51.0); %Monocytes 6.5 % (0.0-10.0); %Neutrophils 65.9 % (42.0-75.0); Hemoglobin 11.6 g/dL (12.0-16.0); Mean Corpuscular HGB CONC 32.3 g/dL (32.0-36.0); Mean Corpuscular Hemoglobin 29.6 pg (27.0-31.0); Mean Corpuscular Volume 91.4 fL (78.0-98.0); Mean Platelet Volume 7.5 fL (7.4-10.4); Platelet Count 235 thou/uL (130-400); RBC Distribution Width 12.3 % (11.5-14.5); Red Blood Cell (RBC) Count 3.94 mill/uL (4.20-5.40)
[2019-12-14] MEDS ORDERED: Senokot 8.6 MG TAB PO PRN ×2 (06:01)
[2019-12-14] MEDS ORDERED: Polyethylene Glycol 3350 17 GM Packet PO PRN (06:01)
--- NOTE | 2019-12-14 06:05 | PDOC.FM ---
- Subjective Subjective: Patient reports that she is feeling better than she has the past few days but still has abdominal pain. She denies BM, N/V. She endorses voiding, ambulation, and passing flatus. - Objective MAR Reviewed: Yes Vital Signs & Weight: Vital Signs (12 hours) Temp Pulse Resp BP Pulse Ox 12/14/19 03:53 98.4 F 87 16 118/80 94 L 12/13/19 23:39 98.4 F 90 17 103/68 96 12/13/19 20:15 98.9 F 84 16 122/78 96 Weight Admit Weight 72.575 kg Weight 72.575 kg I&O: 12/12/19 12/13/19 12/14/19 06:59 06:59 06:59 Intake Total 3400 1250 1430 Balance 3400 1250 1430 Result Diagrams: 12/14/19 05:18 12/14/19 05:18 Phys Exam - Physical Examination Constitutional: NAD HEENT: moist MMs, sclera anicteric Neck: no JVD, supple, full ROM Cardiovascular: RRR, no significant murmur, no rub Gastrointestinal: soft, no distention, positive bowel sounds TTP over surgical area Musculoskeletal: no edema, pulses present Neurological: non-focal, moves all 4 limbs Psychiatric: normal affect, A&O x 3 Dx/Plan - Plan Plan: Choledocholithiasis -Afebrile -S/p ERCP and lap bronw simultaneously -Zofran PRN for nausea -Try to switch to PO pain meds - surgery recs Transaminitis -likely related to choledocholithiasis - Trend PRN Headache -History of migraines in young adulthood -Tylenol PRN Asymptomatic bacteruria UA was positive for leuk reji, WBC, and bacteria, however was likely contaminated due to numerous squamous cells. Patient is asymptomatic, therefore no treatment is indicated. -No treatment at this time IBS -Stable on home meds Hypothyrodism - home meds Mast Cell Activation Syndrome home meds Elevated lipase - Patient may have mild pancreatitis, f/u outpatient Patient will be on [place] PRN for pain with Ibuprofen for break through. Low fat diet with f/u with Dr. Barnhart in 2 weeks PCP: [facility] Call Code: FULL DVT PPx: SCDs Dispo:DC today Addendum - Attending - Attending Attestation Date/Time: 12/14/19 1059 I personally evaluated the patient and discussed the management with Dr. Real. I agree with the History, Examination, Assessment and Plan documented above with any addition or exceptions noted below. Patient continues with some nausea, but pain improved and able to tolerate PO. Monitor intake but she should be stable for discharge later today.
[2019-12-14 06:11] LABS: ALT (SGPT) 264 U/L (8-55); AST (SGOT) 97 U/L (5-34); Albumin 3.6 g/dL (3.5-5.0); Alkaline Phosphatase 270 U/L (40-110); Anion Gap 13 mmol/L (10-20); BUN (Urea Nitrogen) 6 mg/dL (7.0-18.7); Bilirubin, Total 1.5 mg/dL (0.2-1.2); Calc. Creatinine Clearance 97 mL/min (70-130); Carbon Dioxide 28 mmol/L (22-29); Chloride 100 mmol/L (98-107); Estimated GFR-MDRD 75; Globulin 3.7 g/dL (2.4-3.5); Glucose 140 mg/dL (70-105); Potassium 4.5 mmol/L (3.5-5.1); Protein, Total 7.3 g/dL (6.0-8.3); Sodium 136 mmol/L (136-145)
[2019-12-14] MEDS ORDERED: Polyethylene Glycol 3350 17 GM Packet PO SCH (09:00)
[2019-12-14] MEDS: Docusate 100 MG CAP PO SCH (09:03)
[2019-12-14] MEDS: HYDROcodone/Acetaminophen 7.5/325 mg Tablet PO PRN ×2 (09:05→14:49)
[2019-12-14] MEDS: CETIRIZINE 10 MG PO SCH (09:10)
[2019-12-14] MEDS: ESOMEPRAZOLE 40 MG PO SCH (09:12)
[2019-12-14] MEDS: KETOTIFEN PO SCH (09:13)
[2019-12-14] MEDS: Ketotifen Fumarate 0.025% Ophth Soln 5 ml Bottle EA EYE SCH (09:14)
[2019-12-14] MEDS: Ondansetron PF 4 MG/2 ML Vial IVP PRN (09:50)
[2019-12-14 11:31] VITALS: BP 123/81; TEMP 98.4
--- NOTE | 2019-12-15 03:37 | DIS ---
DATE OF ADMISSION: 12/10/2019 DATE OF DISCHARGE: 12/14/2019 RESIDENT: Kye Real MD ADMITTING ATTENDING: Farhana Strauss MD DISCHARGE ATTENDING: Everton Harris MD CONSULTS: GI, Dr. Delarosa; General Surgery, Dr. Barnhart. PROCEDURES: The patient had an ERCP performed by Dr. Delarosa as well as laparoscopic cholecystectomy performed under the same sedation on 12/11/2019. ERCP was performed to remove a gallstone at the sphincter of Oddi as well as a sphincterotomy was performed. The patient had laparoscopic cholecystectomy to prevent further stone formation. PRIMARY DIAGNOSIS: Acute choledocholithiasis. SECONDARY DIAGNOSES: Asymptomatic bacteriuria, transaminitis, headache, irritable bowel syndrome, hypothyroidism, mast cell activation syndrome, elevated lipase. DISCHARGE MEDICATIONS: 1. Zyrtec 10 mg p.o. b.i.d. 2. Docusate 100 mg p.o. b.i.d. 3. Esomeprazole 40 mg p.o. b.i.d. 4. Felch 7.5/325 one to two tablets p.o. q.4 hours p.r.n. 5. Hydroxyzine 10 mg p.o. q.i.d. 6. Ibuprofen 600 mg p.o. q.6 hours p.r.n. 7. Ketotifen fumarate 2 mg p.o. b.i.d. 8. Levothyroxine 150 mcg p.o. daily. 9. Omalizumab 150 mg subcu q.30 days. 10. Zofran 4 mg p.o. q.6 hours p.r.n., 30 tablets. 11. MiraLAX 17 g p.o. packet daily p.r.n. 12. Senokot 8.6 mg tablet p.o. daily p.r.n. 13. Venlafaxine 150 mg p.o. at bedtime. DISCONTINUED MEDICATIONS: None. Of note, Felch was prescribed by surgeon, Dr. Barnhart. HISTORY OF PRESENT ILLNESS/HOSPITAL COURSE: The patient is a 49-year-old female with a history of hypothyroidism, IBS, and mast cell activation syndrome, who presented to the ED with complaints of epigastric pain for the past four days. The patient states that the pain worsened in severity and radiates to her right upper quadrant and her back. She describes the pain as similar to reflux and burning in nature. The pain worsened after eating food and improved with Advil. On admission, she rated the pain 7/10 with waxing and waning going from 10/10 to 2/10. She reports decreased appetite, lightheadedness, hot and cold flashes, nausea and two episodes of vomiting. She denied fever, chest pain, shortness of breath, and edema. She never had symptoms like this before. In the ED, the patient received morphine, Zofran, Zosyn, Toradol, and a normal saline bolus. The patient was afebrile with stable vital signs. Abdominal ultrasound was performed in the ER showing sonographic evidence of cholelithiasis without evidence of cholecystitis. Common bile duct diameter at the upper limits and increased echogenicity of the liver, possible hepatic steatosis or hepatocellular disease. GI was consulted while the patient was still in the ER, General Surgery was consulted on day #2 of hospital admission. On day #2 of hospital admission, the patient had the ERCP and laparoscopic cholecystectomy as described above. The patient had no complications with the procedures. On postop day #1 and day #2, the patient had significant postsurgical pain mainly in the area in the right upper quadrant. Dr. Barnhart managed the patient's pain starting with IV pain medications, then a fentanyl patch and eventually was able to transition the patient to p.o. Felch. The patient had a mildly elevated lipase at time of admission to [facility]. Dr. Barnhart was aware of this and noted that she likely had a mild pancreatitis. Plan was discussed with Dr. Barnhart including close followup within 2 weeks as well as significant p.o. hydration at home. Discussed in detail with the patient and that p.o. hydration is more important and p.o. food intake and it is okay to limit food intake as long as the patient is able to hydrate well. We hope these symptoms will decrease in the next few days. The patient was complaining of mild nausea on day of discharge with a low-fat diet. DISPOSITION: Stable. DISCHARGE INSTRUCTIONS: 1. Location: Home. 2. Diet: Low fat. 3. Activity: Limit activity including weight restrictions. Do not lift more than 20 pounds for the first two weeks after surgery. 4. Followup: Follow up with surgeon, Dr. Barnhart within 2 weeks, follow up with PCP within 2 weeks. Given the patient's difficult pain control, it will be important to follow up on pain as outpatient. She was sent home on Felch as well as ibuprofen for breakthrough pain. Job ID: [id number] [facility]
== END 2019-12-14 15:48 | disposition home or self-care (01) | DRG 417 ==
LOC: ERS 13:54 → SURG B 16:57
PROVIDERS: ADMIT Family Medicine; ATTEND Family Medicine
PROC: 0F798ZZ Dilation of Common Bile Duct, Via Natural or Artificial Opening Endoscopic (ICD-10-PCS; principal; 2019-12-11)
PROC: 0FT44ZZ Resection of Gallbladder, Percutaneous Endoscopic Approach (ICD-10-PCS; 2019-12-11)
DX: K80.44 Calculus of bile duct with chronic cholecystitis without obstruction (principal); K85.90 Acute pancreatitis without necrosis or infection, unspecified; R82.71 Bacteriuria; K58.9 Irritable bowel syndrome, unspecified; D89.40 Mast cell activation, unspecified; E03.9 Hypothyroidism, unspecified; Z20.828 Contact with and (suspected) exposure to other viral communicable diseases; K21.9 Gastro-esophageal reflux disease without esophagitis; F41.9 Anxiety disorder, unspecified; Z79.899 Other long term (current) drug therapy; Z79.890 Hormone replacement therapy
CPT/HCPCS: 36415; 74330; 76705; 80053; 81003; 81015; 83690; 85025; 87635; 88304; 96361; 96365; 96375; 96376; J1100; J1610; J1885; J2250; J2270; J2405; J2543; J2704; J3010; J3490; S0020; U0003

== ENCOUNTER 2020-01-04 13:20 | Outpatient (CLI) | payer OTHER ==
--- NOTE | 2020-01-04 15:37 | MMO ---
Bilateral MAMMO Bilat Screen [facility]DI[facility]. CLINICAL HISTORY: Patient is 49 years old and is seen for screening. The patient has the following family history of breast cancer: mother, at age 60, malignant (generic) and paternal grandmother, at age 70, malignant (generic). The patient has no personal history of cancer. VIEWS: The views performed were: bilateral craniocaudal with tomosynthesis and bilateral mediolateral oblique with tomosynthesis. FILMS COMPARED: The present examination has been compared to prior imaging studies performed at and at [facility] on 12/16/2016. This study has been interpreted with the assistance of computer-aided detection. MAMMOGRAM FINDINGS: The breasts are almost entirely fat. There are no suspicious masses, suspicious calcifications, or new areas of architectural distortion. IMPRESSION: THERE IS NO MAMMOGRAPHIC EVIDENCE OF MALIGNANCY. A ROUTINE FOLLOW-UP MAMMOGRAM IN 1 YEAR IS RECOMMENDED. THE RESULTS OF THIS EXAM WERE SENT TO THE PATIENT. ACR BI-RADS Category 1 - Negative MAMMOGRAPHY NOTE: 1. A negative mammogram report should not delay a biopsy if a dominant of clinically suspicious mass is present. 2. Approximately 10% to 15% of breast cancers are not detected by mammography. 3. Adenosis and dense breasts may obscure an underlying neoplasm. Reported by: SIRISHA BRITTON MD Electonically Signed: [id number]
== END 2020-01-04 13:21 | disposition home or self-care (01) ==
LOC: BICMAMMO 13:20
PROVIDERS: ATTEND Obstetrics & Gynecology
DX: Z12.31 Encounter for screening mammogram for malignant neoplasm of breast (principal); Z80.3 Family history of malignant neoplasm of breast
CPT/HCPCS: 77063; 77067

== ENCOUNTER 2020-02-14 06:56 | Outpatient (CLI) | payer OTHER, SELFPAY ==
[2020-02-14 16:17] LABS: #Eosinphils 0.1 10x3/uL (0.0-0.5); #Monocytes 0.7 10x3/uL (0.0-1.1); #Neutrophils 6.4 10x3/uL (1.5-8.4); %Basophils 0.4 % (0.0-2.0); %Eosinophils 0.6 % (0.0-6.0); %Lymphocytes 33.1 % (18.0-47.0); %Neutrophils 59.4 % (40.0-75.0); Hemoglobin 12.4 g/dL (12.0-16.0); Mean Corpuscular HGB CONC 33.6 G/DL (32.0-36.0); Mean Corpuscular Hemoglobin 28.9 PG (27.0-33.0); Mean Platelet Volume 10.5 fl (7.4-10.4); Platelet Count 366 10x3/uL (130-400); Red Blood Cell (RBC) Count 4.29 10x6/uL (3.90-5.20); White Blood Cell (WBC) Count 10.8 10x3/uL (4.5-11.0)
[2020-02-14 16:55] LABS: Anion Gap 16 mmol/L (10-20); BUN (Urea Nitrogen) 13 mg/dL (7.0-18.7); Calc. Creatinine Clearance 0 mL/min (70-130); Calcium 9.3 mg/dL (7.8-10.44); Carbon Dioxide 24 mmol/L (22-29); Chloride 100 mmol/L (98-107); Estimated GFR-MDRD 69; Glucose 151 mg/dL (70-105); Potassium 4.4 mmol/L (3.5-5.1); Sodium 136 mmol/L (136-145)
[2020-02-15 12:56] LABS: SARS-CoV-2 MS2 Positive; SARS-CoV-2 N Gene Negative; SARS-CoV-2 S Gene Negative; SARS-CoV-2 by NAA Not Detected (NotDetected); SARS-CoV-2 orf1ab Negative
== END 2020-02-14 06:57 | disposition home or self-care (01) ==
LOC: LABBT 06:56
PROVIDERS: ATTEND Surgery
DX: Z01.812 Encounter for preprocedural laboratory examination (principal); Z20.828 Contact with and (suspected) exposure to other viral communicable diseases; K42.9 Umbilical hernia without obstruction or gangrene
CPT/HCPCS: 80048; 85025; 87635; U0003

== ENCOUNTER 2020-02-17 05:55 | Day surgery (SDC) | payer OTHER ==
[2020-02-16 10:15] VITALS: BMI 29.2
[2020-02-17] MEDS ORDERED: Bupivacaine 0.25% HCL 30 ML VIAL ONE (06:53)
[2020-02-17] MEDS ORDERED: Lidocaine 1% w/Epinephrine 1:100K 20 ML VIAL ONE (06:53)
[2020-02-17] MEDS ORDERED: SUGAMMADEX SODIUM 200 MG/2 ML VIAL ONE (07:43)
[2020-02-17] MEDS ORDERED: Fentanyl 100 MCG/2 ML VIAL ONE ×4 (07:43→10:18)
[2020-02-17] MEDS ORDERED: Ketorolac Tromethamine 30 MG/ML VIAL IVP PRN (09:31)
[2020-02-17] MEDS ORDERED: Meperidine HCl/PF 25 MG/ML VIAL SLOW IVP PRN (09:31)
[2020-02-17] MEDS ORDERED: Promethazine HCl 25 MG/ML VIAL SLOW IVP PRN (09:31)
[2020-02-17] MEDS ORDERED: Morphine Sulfate 2 MG/ML SYRINGE SLOW IVP PRN (09:31)
[2020-02-17] MEDS ORDERED: Promethazine HCl 25 MG/ML VIAL IM PRN (09:31)
[2020-02-17] MEDS ORDERED: PACU-Morphine 4MG/ML VIAL SLOW IVP PRN (09:31)
[2020-02-17] MEDS ORDERED: Ondansetron HCl/PF 4 MG/2 ML Vial IVP PRN (09:31)
[2020-02-17] MEDS ORDERED: HYDROmorphone 2 MG/ML VIAL SLOW IVP PRN (09:31)
[2020-02-17] MEDS ORDERED: Rocuronium Bromide 10 MG/ML (10ML VIAL) ONE (09:54)
[2020-02-17] MEDS ORDERED: PROPOFOL 200 MG/20 ML VIAL ONE (09:54)
[2020-02-17] MEDS ORDERED: Ondansetron PF 4 MG/2 ML Vial ONE (09:54)
[2020-02-17] MEDS ORDERED: Lidocaine 1% PF 5 ML VIAL ONE (09:54)
[2020-02-17] MEDS ORDERED: Dexamethasone 20 MG/5 ML VIAL ONE (09:54)
[2020-02-17] MEDS ORDERED: HYDROcodone/Acetaminophen 5/325 mg Tablet ONE (10:58)
--- NOTE | 2020-02-20 14:17 | OP ---
DATE OF PROCEDURE: 02/17/2020 PROCEDURE: Repair of recurrent umbilical hernia with mesh. PREOPERATIVE DIAGNOSIS: Recurrent umbilical hernia. POSTOPERATIVE DIAGNOSIS: Recurrent umbilical hernia. HISTORY OF PRESENT ILLNESS: Ms. Condon is a 49-year-old woman, who underwent a laparoscopic cholecystectomy. Sometime ago, she had an incidental repair of umbilical hernia with suture only at the time of her laparoscopic cholecystectomy. Sometime afterwards, she was engaging in some vigorous activity and felt a pain at her umbilicus following which she developed recurrent bulge and was found to have recurrent hernia. Recommendation was made to undergo repair with mesh. DESCRIPTION OF PROCEDURE: After informed consent was obtained and appropriate preoperative antibiotics administered, the patient was taken to the operating room. She was placed in supine position and general anesthesia was administered. She was prepped and draped in a standard sterile fashion and local anesthesia infused through the skin and subcutaneous tissues at the level of the umbilicus. Her previous incision was reopened and dissection carried down to the hernia sac, which was dissected free to the level of the fascia. The patient was found to have a small defect measuring about 1.5 cm and a second pinhole-sized defect immediately adjacent. These were both reduced into the preperitoneal space and a space developed preperitoneal by blunt dissection. A 4.3 cm mesh was obtained in order to place this in the defect. Two defects were combined by incising the fascia between them. Mesh was placed into the preperitoneal space and confirmed to lie flat in the space. The fascial defect was then closed transversely with braided permanent suture incorporating the central strap of the circular mesh into the closure. The strap was then trimmed and the wound irrigated. Hemostasis was verified and additional local anesthesia infused for postoperative pain control. The umbilicus was tacked down to the fascia and the subcutaneous tissues reapproximated with interrupted Monocryl sutures. The skin was closed with a running subcuticular Monocryl suture and a Dermabond dressing was placed. A cotton ball and Tegaderm pressure dressing was placed to the wounds and the patient was extubated and taken to Recovery in good condition. Estimated blood loss was minimal. There were no complications. There were no specimens. Job ID: [id number]
== END 2020-02-17 12:20 | disposition home or self-care (01) ==
LOC: SDC 05:55
PROVIDERS: ATTEND Surgery
PROC: 0WUF0JZ Supplement Abdominal Wall with Synthetic Substitute, Open Approach (ICD-10-PCS; principal; 2020-02-17)
DX: K42.9 Umbilical hernia without obstruction or gangrene (principal); I10 Essential (primary) hypertension; K58.9 Irritable bowel syndrome, unspecified; E07.9 Disorder of thyroid, unspecified; Z79.899 Other long term (current) drug therapy
CPT/HCPCS: J0690; J1100; J2405; J2704; J3010; S0020

== ENCOUNTER 2021-01-29 12:07 | Outpatient (CLI) | payer OTHER | END 2021-01-29 12:08 | disposition home or self-care (01) | LOC: BICMAMMO 12:07 | PROVIDERS: ATTEND Obstetrics & Gynecology | DX: Z12.31 Encounter for screening mammogram for malignant neoplasm of breast (principal); Z80.3 Family history of malignant neoplasm of breast | CPT/HCPCS: 77063; 77067 ==